=== PATIENT | female | born 1960 | race Caucasian/White ===

== ENCOUNTER 2019-07-11 11:30 | Outpatient (CLI) | payer BC, SELFPAY ==
[2019-07-11 12:43] LABS: Uric Acid 5.3 mg/dL (2.5-7.5)
== END 2019-07-11 11:31 | disposition home or self-care (01) ==
LOC: ANHLAB 11:34
PROVIDERS: PCP Family Medicine; Visit Provider Physician Assistant
DX: M79.675 Pain in left toe(s) (principal)
CPT/HCPCS: 36415; 84550

== ENCOUNTER → 2020-03-20 16:37 | Outpatient (CLI) | payer BC, SELFPAY ==
--- NOTE | ~2020-03-20 | MM_ITS ---
EXAMINATION: MM screening dyana BI w jeanette HISTORY: Screening mammogram TECHNIQUE: Craniocaudal and mediolateral oblique 3-D tomosynthesis images were obtained and synthetic 2-D images were generated. CAD analysis was submitted and interpreted. COMPARISON: No prior mammogram is available for comparison at this institution. BREAST PARENCHYMAL COMPOSITION: The breasts are almost entirely fatty. FINDINGS: There is no evidence of suspicious mass, calcification, or architectural distortion to sugg est malignancy in either breast. IMPRESSION: 1. No mammographic evidence of malignancy. 2. Recommend routine screening mammography in one year. BI-RADS Category 1: Negative Reviewed, dictated and finalized at location A. [employer]ER [employer]ER
== END ==
PROVIDERS: PCP Family Medicine; Visit Provider Physician Assistant
DX: Z12.31 Encounter for screening mammogram for malignant neoplasm of breast (principal)
CPT/HCPCS: 77063; 77067

== ENCOUNTER 2020-06-03 11:20 | Outpatient (NON) | payer BC, SELFPAY ==
[2020-06-03 22:27] LABS: SARS-CoV-2 RNA PCR Negative
== END 2020-06-03 11:21 ==
PROVIDERS: PCP Family Medicine; Visit Provider Nurse Practitioner Family
DX: R05 Cough (principal); Z20.822 Contact with and (suspected) exposure to COVID-19
CPT/HCPCS: C9803; U0003; U0005

== ENCOUNTER 2021-01-26 09:22 | Outpatient (CLI) | payer BC, SELFPAY ==
--- NOTE | 2021-01-26 11:30 | NEURO_ITS ---
Impression: # Complains of numbness of left lower extremity. # Normal motor nerve conduction study. # Normal F-waves # Right sensory responses unobtainable. # Normal needle/EMG exam. Nerve Conduction Studies Anti Sensory Summary Table Stim Site NR Peak (ms) P-T Amp (?V) Site1 Site2 Delta-P (ms) Dist (cm) Matt (m/s) Left Sup Fibular Anti Sensory (Ant Lat Mall) 14 cm 3.4 16.4 14 cm Ant Lat Mall 3.4 16.0 47 Right Sup Fibular Anti Sensory (Ant Lat Mall) NO RESPONSE 14 cm NR 14 cm Ant Lat Mall 16.0 4.1 9.1 Left Sural Anti Sensory (Lat Mall) Calf 3.5 25.8 Calf Lat Mall 3.5 16.0 46 Right Sural Anti Sensory (Lat Mall) NO RESPONSE Calf NR Calf Lat Mall 16.0 Motor Summary Table Stim Site NR Onset (ms) O-P Amp (mV) Site1 Site2 Delta-0 (ms) Dist (cm) Matt (m/s) Left Peroneal Motor (Vastus Med) Ankle 4.8 1.1 Popit Ankle 9.1 36.0 40 Popit 13.9 1.1 Right Peroneal Motor (Vastus Med) Ankle 4.7 1.7 Popit Ankle 7.9 36.0 46 Popit 12.6 1.4 Left Tibial Motor (Abd Lerma Brev) Ankle 4.6 5.8 Knee Ankle 9.2 39.0 42 Knee 13.8 3.3 Right Tibial Motor (Abd Lerma Brev) Ankle 4.4 7.0 Knee Ankle 8.7 38.0 44 Knee 13.1 3.2 F Wave Studies NR F-Lat (ms) L-R F-Lat (ms) Left Peroneal (Mrkrs) (EDB) 51.01 1.06 Right Peroneal (Mrkrs) (EDB) 52.08 1.06 Left Tibial (Mrkrs) (Abd Hallucis) 50.82 1.09 Right Tibial (Mrkrs) (Abd Hallucis) 51.91 1.09 EMG Side Muscle Nerve Root Ins Act Fibs Amp Dur Recrt Comment Right AntTibialis Dp Br Fibular L4-5 Nml Nml Nml Nml Nml Right Gastroc Tibial S1-2 Nml Nml Nml Nml Nml Right Fibularis Long Sup Br Fibular L5-S1 Nml Nml Nml Nml Nml Right Flex Dig Long Tibial L5-S2 Nml Nml Nml Nml Nml Right Ext Dig Brev Dp Br Fibular L5, S1 Nml Nml Nml Nml Nml Left AntTibialis Dp Br Fibular L4-5 Nml Nml Nml Nml Nml Left Gastroc Tibial S1-2 Nml Nml Nml Nml Nml Left Fibularis Long Sup Br Fibular L5-S1 Nml Nml Nml Nml Nml Left Flex Dig Long Tibial L5-S2 Nml Nml Nml Nml Nml Left Ext Dig Brev Dp Br Fibular L5, S1 Nml Nml Nml Nml Nml MTDD
== END 2021-01-26 09:23 | disposition home or self-care (01) ==
PROVIDERS: PCP Family Medicine; Visit Provider Physician Assistant
DX: R20.2 Paresthesia of skin (principal)
CPT/HCPCS: 95886; 95910

== ENCOUNTER → 2021-04-19 13:56 | Outpatient (CLI) | payer BC, SELFPAY ==
--- NOTE | ~2021-04-19 | MM_ITS ---
EXAMINATION: MM screening dyana BI w jeanette HISTORY: Screening mammogram TECHNIQUE: Craniocaudal and mediolateral oblique 3-D tomosynthesis images were obtained and synthetic 2-D images were generated. CAD analysis was submitted and interpreted. COMPARISON: 03/20/2020 BREAST PARENCHYMAL COMPOSITION: The breasts are almost entirely fatty. FINDINGS: There is no evidence of suspicious mass, calcification, or architectural distortion to sugg est malignancy in either breast. There has been no suspicious interval change. IMPRESSION: 1. No mammographic evidence of malignancy. 2. Recommend routine screening mammography in one year. BI-RADS Category 1: Negative Reviewed, dictated and finalized at location A. D UP RING HAND
== END ==
PROVIDERS: PCP Family Medicine; Visit Provider Physician Assistant
DX: Z12.31 Encounter for screening mammogram for malignant neoplasm of breast (principal)
CPT/HCPCS: 77063; 77067

== ENCOUNTER → 2021-09-23 08:01 | Outpatient (CLI) | payer BC, SELFPAY ==
--- NOTE | ~2021-09-23 | XR_ITS ---
XR lumbar spine 2-3V 09/23/2021 08:29 Indication: Low back pain Procedure: 3 views lumbar spine Comparison: No prior studies for comparison. Findings: Vertebral body heights are maintained. There is multilevel facet hypertrophy of the mid and lower lumbar spine. No significant disc narrowing. No evidence for spondylolisthesis. Pedicles intac t. Sacral foramen are symmetric. There is atherosclerosis. There are cholecystectomy clips. Impression: 1: Mild lumbar spondylosis. Reviewed, dictated and finalized at location B. Impression: 1: Mild lumbar spondylosis.
--- NOTE | ~2021-09-23 | XR_ITS ---
XR hip RT 2V w AP pelvis 09/23/2021 08:29 Indication: Right hip pain Procedure: 3 views right hip including AP pelvis Comparison: No prior studies for comparison. Findings: No fracture, subluxation or dislocation. There is mild osteoarthritis of the hips. There is mild lower lumbar spondylosis. Pelvic rings are intact. Sacral foramen are symmetric. Impression: 1: Mild osteoarthritis of the hips. Reviewed, dictated and finalized at location B. Impression: 1: Mild osteoarthritis of the hips.
== END ==
PROVIDERS: PCP Family Medicine; Visit Provider Family Medicine
DX: M47.816 Spondylosis without myelopathy or radiculopathy, lumbar region (principal); M16.0 Bilateral primary osteoarthritis of hip; I70.90 Unspecified atherosclerosis
CPT/HCPCS: 72100; 73502

== ENCOUNTER → 2021-12-04 09:34 | Outpatient (CLI) | payer BC, SELFPAY ==
--- NOTE | ~2021-12-04 | MR_ITS ---
EXAMINATION: MR lumbar spine wo con DATE: 12/04/2021 10:12 INDICATION: Chronic low back pain. TECHNIQUE: Magnetic resonance imaging (MRI) of the lumbar spine was performed without intravenous con trast. Sequences included sagittal T2-weighted FSE, sagittal T2-weighted FS FSE, sagittal T1-weighted FSE, and axial T2-weighted FSE. COMPARISON: Lumbar spine radiographs 09/23/2021 FINDINGS: Bone alignment is normal. Vertebral body heights are normal. There is mildly decreased disc height at L3-L4 and L4-L5. The distal spinal cord signal intensity is normal. The conus medullaris i s at L1. The following disc levels are specifically discussed: L1-L2: The disc does not extend beyond the endplate margin. There is mild bilateral facet joint osteo arthritis. There is no neural foraminal stenosis. There is no central canal stenosis. L2-L3: The disc is mildly bulging. There is mild bilateral facet joint osteoarthritis. There is mild bilateral neural foraminal stenosis. There is no central canal stenosis. L3-L4: The disc is mildly bulging. There is mild bilateral facet joint osteoarthritis. There is mild bilateral neural foraminal stenosis. There is no central canal stenosis. L4-L5: The disc is bulging and has an annular fissure. There is mild right and moderate left facet suraj int osteoarthritis. There is mild bilateral neural foraminal stenosis. There is mild central canal st enosis. L5-S1: The disc is mildly bulging. There is moderate right and severe left facet joint osteoarthritis . There is mild bilateral neural foraminal stenosis. There is mild central canal stenosis. IMPRESSION: 1. Mild lumbar spondylosis. Reviewed, dictated and finalized at location A. IMPRESSION: 1. Mild lumbar spondylosis.
== END ==
PROVIDERS: PCP Family Medicine; Visit Provider Nurse Practitioner Family
DX: M54.16 Radiculopathy, lumbar region (principal); M43.06 Spondylolysis, lumbar region
CPT/HCPCS: 72148

== ENCOUNTER 2022-01-21 10:12 | Outpatient (CLI) | payer BC, SELFPAY ==
--- NOTE | 2022-01-24 14:05 | WPDPFTINT ---
PFT Procedure Performed PFT Procedure Performed Plethysmography (Lung Vol) Diffusing Cap (DLCO) Flow Vol Loop Spirometry w/o Bronchodil PFT Interpretation This is a pulmonary function test with spirometry, plethysmography and diffusing capacity. The test was performed and results interpreted in accordance with the 2019 and 2005 ATS/ERS Task Force guidelines respectively using the Global Lung Function Initiative-2012 reference equations. Patient demonstrated good effort and cooperation. Reproducibility criteria were met. The quality of the spirometry maneuver was Grade A. Findings: Spirometry: The contour of the inspiratory and expiratory flow tracing are normal. The FVC is 2.92 L, 100% predicted. The FEV1 is 2.19 L, 94% predicted. The FEV1: FVC ratio 75%. Plethysmography: The total lung capacity is 5.04 L, 107% predicted. The functional residual capacity is 2.90 L, 109% predicted. The residual volume is 2.12 L, 113% predicted. Diffusion capacity: The diffusing capacity unadjusted for hemoglobin and carboxyhemoglobin is 15.8, 76% predicted. The diffusing capacity adjusted for alveolar volume is 3.67, 81% predicted. Impression: The spirometry is normal without evidence of an obstructive abnormality. The lung volumes are normal. The diffusing capacity is normal. There are no prior studies for comparison
== END 2022-01-21 10:13 | disposition home or self-care (01) ==
PROVIDERS: PCP Family Medicine; Visit Provider Internal Medicine Cardiovascular Disease
DX: R06.00 Dyspnea, unspecified (principal); Z87.891 Personal history of nicotine dependence
CPT/HCPCS: 94375; 94726; 94729

== ENCOUNTER → 2022-06-09 13:23 | Outpatient (CLI) | payer BC, SELFPAY ==
--- NOTE | ~2022-06-09 | MM_ITS ---
EXAMINATION: MM screening dyana BI w jeanette HISTORY: Screening TECHNIQUE: Craniocaudal and mediolateral oblique 3-D tomosynthesis images were obtained and synthetic 2-D images were generated. CAD analysis was submitted and interpreted. COMPARISON: Comparison to multiple prior studies sequentially, with oldest reviewed study dated 03/08. BREAST PARENCHYMAL COMPOSITION: There are scattered areas of fibroglandular density. FINDINGS: There is no evidence of suspicious mass, calcification, or architectural distortion to sugg est malignancy in either breast. There has been no suspicious interval change. IMPRESSION: 1. No mammographic evidence of malignancy. 2. Recommend routine screening mammography in one year. BI-RADS Category 1: Negative Reviewed, dictated and finalized at location A. 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
== END ==
PROVIDERS: PCP Family Medicine; Visit Provider Family Medicine
DX: Z12.31 Encounter for screening mammogram for malignant neoplasm of breast (principal)
CPT/HCPCS: 77063; 77067

== ENCOUNTER → 2023-02-11 09:39 | Outpatient (CLI) | payer BC, SELFPAY ==
--- NOTE | ~2023-02-11 | MR_ITS ---
EXAMINATION: MR thoracic spine wo con DATE: 02/11/2023 10:34 INDICATION: Chronic thoracic back pain. TECHNIQUE: Magnetic resonance imaging (MRI) of the thoracic spine was performed without intravenous c ontrast. COMPARISON: Lumbar spine MRI 12/04/2021 FINDINGS: There is 8 degrees dextrocurvature of thoracic spine. There is mild chronic height loss of T6-T9 vertebral bodies associated with Schmorl's nodes. There is mildly decreased disc height at T6-T 7, T7-T8, and T8-T9. At T6-T7, there is a central extrusion with mild central canal stenosis and vent ral indentation of the spinal cord. At T10-T11, there is a left central extrusion with mild central c anal stenosis. There is multilevel facet joint osteoarthritis, severe in the upper thoracic spine. Th ere is mild neural foraminal stenosis at multiple levels bilaterally. On the right, there is moderate neural foraminal stenosis at T3-T4. The spinal cord signal intensity is normal. The conus medullaris is at T12-L1. IMPRESSION: 1. Mild thoracic spondylosis. Reviewed, dictated and finalized at location A.
== END ==
PROVIDERS: PCP Nurse Practitioner Family; Visit Provider Nurse Practitioner Family
DX: M43.04 Spondylolysis, thoracic region (principal); M54.6 Pain in thoracic spine
CPT/HCPCS: 72146

== ENCOUNTER 2023-05-10 09:04 | Outpatient (CLI) | payer OTHER, SELFPAY ==
--- NOTE | ~2023-05-10 | XR_ITS ---
EXAMINATION: XR knee RT min 4V, XR tibia fibula RT 2V, XR ankle RT min 3V DATE: 05/10/2023 10:57 INDICATION: Right knee, lower leg and ankle pain TECHNIQUE: 1. Weight bearing anteroposterior and Miranda, sunrise, and flexed lateral views of the right knee were obtained 2. AP and lateral views of the right lower leg were obtained. 3. AP, mortise, oblique and lateral views of the right ankle were obtained. COMPARISON: None. FINDINGS: Bone alignment is normal from the right knee through the visualized right midfoot. No fracture. Small marginal osteophytes in the patellofemoral compartment with mild nonuniform joint space narrowing at the lateral aspect of the patellofemoral articulation. Joint spaces within the right knee, ankle, mi d and hindfoot are otherwise normal with no erosions. No right knee or ankle joint effusion.. Small p lantar calcaneal spur. Tiny enthesopathic ossicle at the distal Achilles tendon. Soft tissues are unr emarkable. IMPRESSION: 1. Mild osteoarthritis at the patellofemoral compartment the right knee. 2. Small plantar calcaneal spur and tiny enthesopathic ossicle at the distal Achilles tendon. Reviewed, dictated and finalized at location A. [employer] IMPRESSION: 1. Mild osteoarthritis at the patellofemoral compartment the right knee. 2. Small plantar calcaneal spur and tiny enthesopathic ossicle at the distal Ac hilles tendon. IMPRESSION: 1. Mild osteoarthritis at the patellofemoral compartment the right knee. 2. Small plantar calcaneal spur and tiny enthesopathic ossicle at the distal Ac hilles tendon.
== END 2023-05-10 09:05 ==
PROVIDERS: PCP Family Medicine; Visit Provider Family Medicine
DX: M17.11 Unilateral primary osteoarthritis, right knee (principal); M77.31 Calcaneal spur, right foot; M77.51 Other enthesopathy of right foot and ankle
CPT/HCPCS: 73564; 73590; 73610

== ENCOUNTER 2023-08-04 12:40 | Outpatient (CLI) | payer BC, SELFPAY ==
--- NOTE | 2023-08-04 | ECHO_ITS ---
Patient Info Name: Sandra Villanueva Age: 62 years : 1960 Gender: Female Ht: 62 in Wt: 265 lbs BSA: 2.37 m2 HR: 76 bpm BP: 189 / 83 mmHg Technical Quality: Fair Exam Date: 08/04/2023 1:03 PM Exam Location: [facility] Lab Patient Status: Outpatient Admit Date: 08/04/2023 Staff Ordering Physician: Dannie, Sandra Vigil MD Smoke Tester: Madhavi Marie RDCS Attending Provider: Dannie, Sandra Vigil MD Referring Physician: Dannie ANTUNEZ; Exam Type: CA echo doppler color flow Study Info Indications - [place] Complete two-dimensional, color flow and Doppler transthoracic echocardiogram is performed. Summary 1. Complete two-dimensional, color flow and Doppler transthoracic echocardiogram is performed. 2. Left ventricular chamber dimension is normal. 3. Left ventricular systolic function is normal, estimated at 60-65%. 4. The left ventricular diastolic function is grade I diastolic dysfunction. 5. E/e' 10 is mildly elevated. 6. There is trace pulmonic regurgitation. Left Ventricle E/e' 10 is mildly elevated. Left ventricular chamber dimension is normal. Left ventricular systolic function is normal, estimated at 60-65%. The left ventricular diastolic function is grade I diastolic dysfunction. Right Ventricle Right ventricular chamber dimension is normal. Right ventricular systolic function is normal. Left Atria Left atrial chamber dimension is normal. Right Atria Right atrial chamber dimension is normal. Aortic Valve The aortic valve is trileaflet. There is no aortic valve stenosis. There is no aortic valve regurgitation. Pulmonic Valve There is trace pulmonic regurgitation. Mitral Valve There is no mitral valve stenosis. There is no mitral valve regurgitation. Tricuspid Valve There is no tricuspid valve regurgitation. Pericardium/Pleural There is no pericardial effusion. Inferior Vena Cava Normal inferior vena cava with >50% collapse upon inspiration consistent with normal right atrial pressure, 5 mmHg. Aorta The aortic root size at the sinus of Valsalva is normal. Left Ventricular Outflow Tract Name Value Normal LVOT 2D LVOT Diameter 2.1 cm LVOT Doppler LVOT Peak Gradient 6 mmHg LVOT Mean Gradient 3 mmHg LVOT VTI 21 cm LVOT VTI/AV VTI Ratio 1.2 LVOT Stroke Volume 68 ml LVOT CO 5.4 l/min LVOT CI 2.3 l/min/m2 Pulmonic Valve Name Value Normal RVOT Doppler RVOT Peak Gradient 2 mmHg PV Doppler PV Peak Gradient 3 mmHg PV Regurgitation Doppler AK Peak End Diastolic Velocity 89 cm/s Mi
== END 2023-08-04 12:41 | disposition home or self-care (01) ==
PROVIDERS: Visit Provider Family Medicine
DX: R06.09 Other forms of dyspnea (principal)
CPT/HCPCS: 93306

== ENCOUNTER 2024-06-12 14:23 | Outpatient (CLI) | payer BC, SELFPAY ==
--- NOTE | ~2024-06-12 | MM_ITS ---
EXAMINATION: MM screening dyana BI w jeanette HISTORY: Screening TECHNIQUE: Craniocaudal and mediolateral oblique 3-D tomosynthesis images were obtained and synthetic 2-D images were generated. CAD analysis was submitted and interpreted. COMPARISON: Comparison to multiple prior studies sequentially, with oldest reviewed study dated 03/08. BREAST PARENCHYMAL COMPOSITION: Not Dense: The breasts are almost entirely fatty. FINDINGS: There is no evidence of suspicious mass, calcification, or architectural distortion to sugg est malignancy in either breast. There has been no suspicious interval change. IMPRESSION: 1. No mammographic evidence of malignancy. 2. Recommend routine screening mammography in one year. BI-RADS Category 1: Negative Reviewed, dictated and finalized at location B. L SUMMER INTERN
== END 2024-06-12 14:24 | disposition home or self-care (01) ==
LOC: MICIMG 14:25
PROVIDERS: PCP Nurse Practitioner Family; Visit Provider Nurse Practitioner Family
DX: Z12.31 Encounter for screening mammogram for malignant neoplasm of breast (principal)
CPT/HCPCS: 77063; 77067